=== PATIENT | male | born 1945 | race Caucasian/White ===

== ENCOUNTER 2024-02-04 15:33 | Emergency (ER) | payer SELFPAY ==
[2024-02-04 15:45] VITALS: BP 140/66; PULSE 79; RESP 14; TEMP 36.8; O2SAT 99; BMI 22.2
--- NOTE | 2024-02-04 17:01 | ED.SKABFB ---
HPI - Skin/Abscess/Foreign Bdy General Chief complaint: Skin/Abscess/Foreign Body Stated complaint: stoma, bleeding Time Seen by Provider: 02/04/24 17:01 Source: patient Mode of arrival: Ambulatory Limitations: no limitations History of Present Illness HPI narrative: 78-year-old gentleman with the urostomy. has been doing more work on his cell but recently with more bending twisting and turning. Noticed some bright red blood around the urostomy and was concerned. Came to the emergency department for further evaluation. Having no other symptoms urostomy is otherwise draining appropriately, yellow non blood tinged urine Review of Systems Review of Systems Narrative: Pertinent positive and negative findings as per HPI Patient History Surgical History (Updated 02/04/24 @ 17:02 by Eryn Jimenez MD) History of urostomy Social History Smoking Status: Never smoker Smoking Status: Never smoker alcohol intake frequency: other Substance Use Type: does not use Exam Initial Vital Signs Initial Vital Signs: Vital Signs Temperature 98.2 F 02/04/24 15:45 Pulse Rate 79 02/04/24 15:45 Respiratory Rate 14 02/04/24 15:45 Blood Pressure 140/66 02/04/24 15:45 Pulse Oximetry 99 02/04/24 15:45 Oxygen Delivery Method Room Air 02/04/24 15:45 General: Alert appropriate in no acute distress Respiratory: Able to speak in full sentences, no obvious respiratory distress Skin: No obvious rashes, warm and dry Neurologic: Grossly intact no obvious asymmetries or abnormalities Psych: appropriate insight and affect, cooperative urostomy: Urostomy in the right lower portion of the abdomen is healthy appearing, good blood flow no active bleeding, clear urine draining Course Vital Signs Vital signs: Vital Signs - 8 hr 02/04/24 15:45 Temperature 98.2 F Pulse Rate 79 Respiratory Rate 14 Blood Pressure 140/66 Pulse Oximetry 99 Oxygen Delivery Method Room Air MDM - Skin/Abscess/Foreign Bdy MDM Narrative Medical decision making narrative: 78-year-old gentleman with bright red blood around his urostomy after doing more twisting turning and bending while working on his sailboat. Bleeding has stopped. Urostomy is quite healthy appearing, he has not having any hematuria. He has talked with his urologist in the interval who reassured him that this can be normal and is of no concern. Questions are answered and they are discharged Discharge Plan Departure Patient Disposition: Home Clinical Impression: Complication of urostomy Stand Alone Forms: Patient Portal/API/Survey
--- NOTE | 2024-02-04 17:13 | PC.NURSE ---
Pt arrived to ED and has concerns about bleeding around urostomy stoma. States that they have spoken to their doctor and would like to leave.
== END 2024-02-04 17:17 | disposition home or self-care (01) ==
PROVIDERS: Emergency Provider Emergency Medicine
DX: N99.528 Other complication of incontinent external stoma of urinary tract (principal)
CPT/HCPCS: 99281